=== PATIENT | female | born 1955 | race Caucasian/White ===

== ENCOUNTER 2024-02-26 17:56 | Observation (INO) | payer MEDICARE, BC ==
[~2024-02-26] VITALS: Ht 165.1 cm; Wt 107.7 kg
[~2024-02-26 17:56] MED LIST: ALDACTONE 25MG25 M1 PO; AVAPRO TAB150 MG/TAB PO; CALCIUM 600MG+D1 TAB PO; CYCLOBENZAPRINE10 MG PO; DISALCID500 MG PO; ENABLEX15 MG PO; FOLIC ACID 40400 MCG PO; METOPROLOL SR25 MG PO; NEURONTIN300 MG/CAP PO; NORCO 325 MG-7.1 TAB PO; PRILOSEC 20MG20 MG PO; SYNTHROID 0.0.025 MG PO; VENLAFAXINE75 MG PO; VITAMIN C PO
--- NOTE | 2024-02-26 20:20 | NUR ---
DARWIN SPICER AT BEDSIDE TO ASSESS THE PATIENT.
[2024-02-26 20:24] VITALS: BP 123/73; PULSE 77; TEMP 98.2
[2024-02-26] MEDS ORDERED: HYDROmorphone 1 MG/1 ML SYRINGE [PACU/SDC ONLY] IV PRN (20:45)
[2024-02-26] MEDS ORDERED: hydrALAZINE 20 MG/ML 1 ML VIAL IV PRN (20:45)
[2024-02-26] MEDS ORDERED: Ondansetron 4 MG/2 ML VIAL IV PRN ×2 (20:45→22:15)
[2024-02-26] MEDS ORDERED: fentaNYL 50 MCG/ML 1 ML SYRINGE/VIAL [PACU/SDC ONLY] IV PRN (20:45)
[2024-02-26] MEDS ORDERED: Meperidine 50 MG/ML 1 ML VIAL IV PRN (20:45)
[2024-02-26] MEDS ORDERED: LR 1,000 ML IV SCH (20:45)
[2024-02-26] MEDS ORDERED: Lidocaine PF 2% (20 MG/ML) 5 ML VIAL ONE (20:48)
[2024-02-26] MEDS ORDERED: fentaNYL 50 MCG/ML 5 ML VIAL ONE (20:48)
[2024-02-26] MEDS ORDERED: Ondansetron 4 MG/2 ML VIAL ONE (20:48)
--- NOTE | 2024-02-26 21:02 | NUR ---
2102 PATIENT LEAVES FOR THE OR AT THIS TIME.
[2024-02-26] MEDS ORDERED: Magnes Hydrox (MOM) 80 MG/ML 30 ML CUP PO PRN (22:15)
[2024-02-26] MEDS ORDERED: NS 1,000 ML IV SCH (22:15)
[2024-02-26] MEDS ORDERED: Acetaminophen 500 MG TAB PO PRN (22:15)
[2024-02-26] MEDS ORDERED: Morphine 4 MG/ML VIAL IV PRN (22:30)
[2024-02-26] MEDS ORDERED: HYDROcodone/Acetaminophen 7.5-325 MG TAB PO PRN (22:30)
[2024-02-26] MEDS ORDERED: traMADol 50 MG TAB PO PRN (22:30)
[2024-02-26 23:45] VITALS: BP 126/81; PULSE 71; TEMP 98.1
--- NOTE | 2024-02-26 23:45 | NUR ---
2345 THE PATIENT IS BACK FROM THE OR AT THIS TIME.
--- NOTE | 2024-02-26 23:58 | NUR ---
THE PATIENT ARRIVED AT 20:10 ACCOMPANIED BY EMS. THE PATIENT WAS A TRANSFER FROM [facility]. THE PATIENT WAS ALERT AND ORIENTED UPON ARRIVAL. VITAL SIGNS STABLE. THE PATIENT HAS ONE UPPER DENTURE AND GLASSES WITH HER. THE PATIENT WAS ORIENTED TO THE ROOM AND BED CONTROLS. A PIV WAS STARTED WITH 1 ATTEMPT TO THE RIGHT AC # 22. DARWIN SPICER WAS AT THE BEDSIDE AT 20:20 IN PREPARATION FOR AN I&D OF THE PTS RIGHT KNEE INCISION SITE THAT HAD DEHISCENCE. CALL LIGHT WITHIN REACH.
[2024-02-27] VITALS (20 sets, daily range): BP systolic 95–138; BP diastolic 47–85; PULSE 67–80; TEMP 97.8–98.6
[2024-02-27] MEDS ORDERED: ceFAZolin 2 G in Water For Injection,Sterile 20 ML IV SCH (02:15)
--- NOTE | 2024-02-27 02:18 | NUR ---
CURRENTLY THE PATIENT IS RESTING IN BED AND APPEARS TO BE SLEEPING. THE PATIENT IS EASILY AROUSABLE. RIGHT KNEE DRESSING IS C/D/I. ICE APPLIED.
[2024-02-27 07:00] LABS: HEMOGLOBIN 12.2 g/dl (12.5-16.0)
[2024-02-27] MEDS ORDERED: Omeprazole 20 MG **** subs to Pantoprazole 40 MG PO SCH (07:00)
[2024-02-27 07:06] LABS: HEMATOCRIT 36.2 % (37.0-47.0)
[2024-02-27] MEDS ORDERED: ALKA-SELTZER HE1 TEF (07:52)
[2024-02-27] MEDS ORDERED: CRESTOR5 MG PO (08:03)
[2024-02-27] MEDS ORDERED: CYMBALTA 30MG30 MG PO (08:06)
[2024-02-27] MEDS ORDERED: CYMBALTA 60MG60 MG PO (08:07)
[2024-02-27] MEDS ORDERED: MILK OF MA1200 MG/5 PO (08:11)
[2024-02-27] MEDS ORDERED: MUCINEX 60600 MG/TA1 PO (08:12)
[2024-02-27] MEDS ORDERED: ONE DAILY ESSE0.5 M1 PO (08:15)
[2024-02-27] MEDS ORDERED: IBU600 MG PO (08:21)
[2024-02-27] MEDS ORDERED: DITROPAN 5MG TAB5 MG PO (08:26)
[2024-02-27] MEDS ORDERED: TOPAMAX50 MG PO ×2 (08:28→12:32)
[2024-02-27] MEDS ORDERED: VITAMINE200 (08:30)
--- NOTE | 2024-02-27 08:38 | NUR ---
MED REC COMPLETED WITH MEDICATION LIST SENT FROM [facility].
[2024-02-27] MEDS ORDERED: Losartan 50 MG TAB PO SCH (09:00)
[2024-02-27] MEDS ORDERED: [UNRECOGNIZED DRUG - REMARK] PO SCH (09:00)
[2024-02-27] MEDS ORDERED: IRBESARTAN 150 MG PO SCH (09:00)
[2024-02-27] MEDS ORDERED: SUBS TO LOSARTAN PO SCH (09:00)
[2024-02-27] MEDS ORDERED: Gabapentin 300 MG CAP PO SCH (09:00)
[2024-02-27] MEDS ORDERED: Calcium Citrate/Vit D3 200 mg-6.25 mcg(250 Units) TAB PO SCH (09:00)
[2024-02-27] MEDS ORDERED: Folic Acid 1 MG TAB PO SCH (09:00)
--- NOTE | 2024-02-27 11:28 | NUR ---
Patient drowsy but arousable, alert and oriented. C/O right knee pain and nausea, PRNs given as ordered. Poor appetite but able to eat some jello this AM. States she is tired and has not gotten much rest. Julien wrap to right knee, C/D/I. Bed in lowest position with call light within reach.
[2024-02-27] MEDS ORDERED: FLEXERIL 1010 MG/TAB PO (12:31)
[2024-02-27] MEDS ORDERED: PEPCID 20MG TAB20 MG PO (12:33)
[2024-02-27] MEDS ORDERED: DURICEF 500MG500 MG PO (12:40)
--- NOTE | 2024-02-27 13:36 | NUR ---
Several visit attempts; Patient sleeping. Musical Instrument Maker left her card offering Spiritual Care and God's blessings.
--- NOTE | 2024-02-27 16:25 | NUR ---
Coil Machine Operator met with patient and her , Pedro to discuss discharge planning. Patient was quiet during intake and gave minimal responses. Patient did confirm she and Pedro live in [place], [place] and she sees Dr. Hunter for primary care. Patient reported she gets medications from [facility] and does occasionally have difficulty affording medications, however it is not currently stopping her from taking any presribed meds. Patient stated she is doing outpatient PT in [place] at the hospital. Patient has discharge orders and plan was to return home today. SW was contacted a short time later by RN and PT who advised Pedro stated he cannot take patient home. KAL met again with patient and Pedro alongside PT/OT. SW advised she would not qualify for swing bed or SNF, however SW could set up Home Health services. Patient is agreeable so SW provided Medicare.gov list of options. Patient stated she did not feel safe going home tonight so SW and RN spoke with DARWIN Hook who agreed to have patient stay another night for additional therapy. KAL met with patient and Pedro to let them know she still would not qualify for swing bed or SNF and that plan would be home with tomorrow. Both verbalized understanding. KAL contacted the four agencies that serve [place], [place]. [facility] does not have PT/OT in that area, just nursing. [facility] has therapy, but does not accept patient's insurance ([employer]). [facility] also does not have therapy in that area. KAL contacted [facility] and they have nursing and PT, possibly OT in that area and accept [employer]. KAL faxed referral which included insurance card. Discharge Plan: Home with , pending acceptance from [facility]
--- NOTE | 2024-02-27 16:30 | NUR ---
Case discussed with Dr. Yeung - patient preparing for discharge, however when patient's arrived he asked "if she was going home or going to a swing bed." Discussed with family and patient that the plan previously discussed was to go home, however patient's stated "I can't take care of her" and then the patient stated she did not feel comfortable going home today. At this time, Ela PT was in the room to do an afternoon session, and at this time Ela voiced her concerns about the patient being discharged today and recommended at least one more night with a PT session this afternoon and one tomorrow before discharge. At this time, Vanessa BOWDEN was involved in the discussion to discuss safe discharge. Due to discharge concerns, Dr. Yeung was notified - order to discharge cancelled, plan to stay one more night and discharge home tomorrow. IV removed early in preparation for discharge, okay to leave IV out per Dr. Yeung. Family and patient updated on plan of care. All agreeable with this plan.
[2024-02-27] MEDS ORDERED: Sennosides/Docusate 8.6-50 MG TAB PO SCH (21:00)
--- NOTE | 2024-02-27 21:52 | NUR ---
PT FOUND ON RA AT 1938 SATTING 83%. 3L NC APPLIED TO PT, PT NOW SATTING 92%.
--- NOTE | 2024-02-27 22:46 | NUR ---
patient lying in bed, alert and oriented x4. denies chest pain and shortness of breath. desats into high 80s while sleeping, per RT 3L o2 per NC placed, sats in 90s. no IV in place, okay with physicians. right knee with zeroform and acuacell, ice applied. high thigh TEDs on BLE. reports pain in right knee rated 9/10, per request norco given. upon reassessment pt resting in bed with eyes closed. fall precautions in place, call light within reach. pt has no further needs, questions or concerns at this time.
[2024-02-28 04:21] VITALS: BP 114/75; PULSE 75; TEMP 99.2
[2024-02-28 04:32] VITALS: BP_SYST 114
[2024-02-28 07:09] VITALS: BP 122/77; PULSE 68; TEMP 97.7
--- NOTE | 2024-02-28 09:28 | NUR ---
Patient awake, alert and oriented. Working with PT this AM, awaiting discharge plan. Up in chair, c/o pain to right knee. PRN given as ordered. Call light within reach, fall precautions in place. Knee brace on when ambulating.
[2024-02-28 09:30] VITALS: BP_SYST 122
[2024-02-28 11:55] VITALS: BP 110/73; PULSE 71; TEMP 98.9
[2024-02-28 12:20] VITALS: BP_SYST 110
--- NOTE | 2024-02-28 14:06 | NUR ---
Patient discharged to home with home health, picked up by . Pt and educated on discharge instructions and new medications, both verbalized understanding. Assisted out to car by nursing staff, all belongings sent home with patient including knee brace and suitcase of clothing.
--- NOTE | 2024-02-28 16:04 | NUR ---
Industrial Maintenance Repairer was contacted by Natalie at [facility] who accepted patient for PT and nursing. KAL updated [facility] GRANADOS who put in HH orders, which KAL faxed to [place]. KAL contacted Natalie who confirmed they were received. KAL met with patient's , Pedro at the nurses station who expressed understanding of the plan.
== END 2024-02-28 13:50 | disposition home health service (06) ==
LOC: SURG 17:56
PROVIDERS: ADMIT Orthopaedic Surgery
DX: T81.33XA Disruption of traumatic injury wound repair, initial encounter (principal); F17.210 Nicotine dependence, cigarettes, uncomplicated; E66.9 Obesity, unspecified; W19.XXXA Unspecified fall, initial encounter; Z85.3 Personal history of malignant neoplasm of breast
CPT/HCPCS: A6197; A9284; G0378; G0379; J0688; J0690; J1170; J2405; J2704; J3010; J7030